=== PATIENT | female | born 1995 | race Hispanic/Latino ===

== ENCOUNTER 2022-10-22 06:00 | Inpatient (IN) | payer MEDICAID, OTHER ==
[2022-10-22] MEDS ORDERED: NS w/ Oxytocin 30 units 500 ML ONE (07:22)
[2022-10-22] MEDS: Lactated Ringer's 1,000 ML IV SCH ×2 (07:35→16:27)
[2022-10-22] MEDS ORDERED: Tranexamic Acid 1,000 MG in Sodium Chloride 0.9% 250 ML 250 ML IVPB PRN (07:42)
[2022-10-22] MEDS ORDERED: Acetaminophen 500 MG TAB PO PRN (07:42)
[2022-10-22] MEDS ORDERED: Diphenoxylate HCl/Atropine Tablet PO PRN (07:42)
[2022-10-22] MEDS ORDERED: hydrALAZINE 20 MG/ML VIAL SLOW IVP PRN (07:42)
[2022-10-22] MEDS ORDERED: Promethazine HCl 25 MG/ML VIAL IM PRN ×2 (07:42→14:41)
[2022-10-22] MEDS ORDERED: HYDROcodone/Acetaminophen 5/325 mg Tablet PO PRN (07:42)
[2022-10-22] MEDS ORDERED: Butorphanol Tartrate 1 MG/ML VIAL SLOW IVP PRN (07:42)
[2022-10-22] MEDS ORDERED: NS w/ Oxytocin 30 units 500 ML IV SCH ×2 (07:42)
[2022-10-22] MEDS ORDERED: Misoprostol 200 MCG TAB PR PRN (07:42)
[2022-10-22] MEDS ORDERED: Lidocaine 1% (PF) 30 ML VIAL SC PRN (07:42)
[2022-10-22] MEDS ORDERED: Carboprost 250 MCG/ML AMP IM PRN (07:42)
[2022-10-22] MEDS ORDERED: Ibuprofen 800 MG TAB PO PRN (07:42)
[2022-10-22] MEDS ORDERED: Ondansetron PF 4 MG/2 ML Vial IVP PRN ×2 (07:42→14:41)
[2022-10-22] MEDS ORDERED: Methylergonovine 0.2 MG/ML VIAL IM PRN (07:42)
[2022-10-22] MEDS ORDERED: Bupivacaine PF 0.5% 30 ML VIAL ONE (08:00)
[2022-10-22 08:02] VITALS: BMI 29.8
[2022-10-22 08:43] LABS: Hemoglobin 14.1 g/dL (12.0-15.5); Mean Corpuscular Hemoglobin 35.3 pg (27.0-33.0); Mean Corpuscular Volume 95.5 fl (81.6-98.3); Mean Platelet Volume 11.2 fl (7.4-10.4); Platelet Count 218 10x3/uL (150-450); RBC Distribution Width 13.2 % (11.5-14.5); Red Blood Cell (RBC) Count 3.99 10x6/uL (3.90-5.03); White Blood Cell (WBC) Count 7.2 10x3/uL (3.5-10.5)
[2022-10-22 08:44] LABS: Syphilis Antibody Nonreactive (Nonreactive); Syphilis Antibody Index 0.03 S/CO (<1.00 Non-Reactive)
[2022-10-22 08:45] LABS: HBSAg Index 0.14 S/CO (0-0.99); Hep B Surf Ag Non-Reactive S/CO (NonReactive)
[2022-10-22 08:46] LABS: SARS-CoV-2 NAA Rapid Test Not Detected (NotDetected)
[2022-10-22] MEDS ORDERED: Fentanyl 2 mcg/Bup 0.1% Cadd 100 ML ONE (11:48)
[2022-10-22] MEDS ORDERED: Moisturizing Cream (Eucerin) 113 GM JAR TOP PRN (14:41)
[2022-10-22] MEDS ORDERED: ePHEDrine Sulfate 50 MG/10 ML VIAL SLOW IVP PRN (14:41)
[2022-10-22] MEDS ORDERED: diphenhydrAMINE 50 MG/ML VIAL IVP PRN (14:41)
[2022-10-22] MEDS ORDERED: Lactated Ringer's 500 ML IV PRN (14:41)
[2022-10-22] MEDS ORDERED: Naloxone HCl 0.4 mg/ml Vial IVP PRN ×2 (14:41)
[2022-10-22] MEDS ORDERED: Acetaminophen 325 MG TAB PO PRN (14:41)
[2022-10-22] MEDS ORDERED: Fentanyl 2 mcg/Bupivacaine 0.1% Cassette 100 ML EPIDURAL SCH (14:45)
[2022-10-22] MEDS ORDERED: Communication Order-Pharmacy FS SCH (14:45)
[2022-10-23] MEDS ORDERED: Lidocaine 1% (PF) 30 ML VIAL ONE (02:30)
[2022-10-23] MEDS ORDERED: Boostrix 0.5 ML (Tdap) VIAL (>/=7 yrs of age) IM SCH (05:00)
[2022-10-23] MEDS ORDERED: Milk Of Magnesia 30 ML UDCUP PO PRN (05:00)
[2022-10-23] MEDS ORDERED: Methylergonovine 0.2 MG/ML VIAL IM PRN (05:00)
[2022-10-23] MEDS ORDERED: Benzocaine-Menthol 82.5 ML CAN TOP PRN (05:00)
[2022-10-23] MEDS ORDERED: Bisacodyl 10 MG SUPP PR PRN (05:00)
[2022-10-23] MEDS ORDERED: Misoprostol 200 MCG TAB VAG PRN (05:04)
[2022-10-23] MEDS ORDERED: hydrALAZINE 20 MG/ML VIAL SLOW IVP PRN (05:04)
[2022-10-23] MEDS: Ibuprofen 800 MG TAB PO SCH ×3 (06:27→21:38)
[2022-10-23] MEDS: Misoprostol 100 MCG TAB VAG SCH (09:39)
[2022-10-23] MEDS: Lactated Ringer's 1,000 ML IV SCH ×2 (09:39→15:26)
[2022-10-23] MEDS: Ferrous Sulfate 325 MG TAB PO SCH ×2 (14:30→15:27)
[2022-10-23] MEDS: Docusate 100 MG CAP PO SCH ×2 (14:30→21:37)
[2022-10-23] MEDS ORDERED: HYDROcodone/Acetaminophen 5/325 mg Tablet PO PRN (15:00)
[2022-10-23] MEDS: HYDROcodone/Acetaminophen 5/325 mg Tablet PO PRN (17:03)
[2022-10-24] MEDS: Lactated Ringer's 1,000 ML IV SCH ×3 (00:01→18:05)
[2022-10-24] MEDS: Ibuprofen 800 MG TAB PO SCH ×3 (06:07→20:28)
[2022-10-24 07:54] VITALS: BP 126/77; TEMP 98.3
[2022-10-24] MEDS: Ferrous Sulfate 325 MG TAB PO SCH ×2 (08:34→18:06)
[2022-10-24] MEDS: Docusate 100 MG CAP PO SCH (08:43)
[2022-10-24] MEDS: HYDROcodone/Acetaminophen 5/325 mg Tablet PO PRN (13:41)
== END 2022-10-24 20:55 | disposition home or self-care (01) | DRG 807 ==
LOC: CSHLD 06:34 → CSHPP 10-23 15:05
PROVIDERS: ADMIT Family Medicine; ATTEND Family Medicine
PROC: 3E033VJ Introduction of Other Hormone into Peripheral Vein, Percutaneous Approach (ICD-10-PCS; principal; 2022-10-23)
PROC: 10E0XZZ Delivery of Products of Conception, External Approach (ICD-10-PCS; 2022-10-23)
PROC: 10907ZC Drainage of Amniotic Fluid, Therapeutic from Products of Conception, Via Natural or Artificial Opening (ICD-10-PCS; 2022-10-23)
PROC: 0W8NXZZ Division of Female Perineum, External Approach (ICD-10-PCS; 2022-10-23)
DX: O80 Encounter for full-term uncomplicated delivery (principal); Z37.0 Single live birth; Z3A.40 40 weeks gestation of pregnancy; Z20.822 Contact with and (suspected) exposure to COVID-19; Z79.899 Other long term (current) drug therapy
CPT/HCPCS: 36415; 51702; 85027; 86780; 86850; 86900; 86901; 87340; J2590; J7120; S0020; U0002

== ENCOUNTER 2024-03-09 23:33 | Inpatient (IN) | payer MEDICAID, OTHER ==
[2024-03-10] MEDS ORDERED: fentaNYL 50 mcg/mL 1 mL Vial SLOW IVP PRN (00:31)
[2024-03-10] MEDS ORDERED: Tranexamic Acid 1,000 MG/10 ML VIAL IVP PRN (00:31)
[2024-03-10 00:32] VITALS: BMI 32.8
[2024-03-10] MEDS ORDERED: Ibuprofen 800 MG TAB PO PRN (00:45)
[2024-03-10] MEDS ORDERED: Oxytocin 30 units/NS 500 ML 500 ML IVPB SCH (00:45)
[2024-03-10] MEDS ORDERED: Promethazine HCl 25 MG/ML VIAL IM PRN ×3 (00:45→09:56)
[2024-03-10] MEDS ORDERED: Lidocaine 1% (PF) 30 ML VIAL SC PRN (00:45)
[2024-03-10] MEDS ORDERED: Ondansetron PF 4 MG/2 ML Vial IVP PRN ×3 (00:45→09:56)
[2024-03-10] MEDS ORDERED: Diphenoxylate HCl/Atropine Tablet PO PRN ×2 (00:45)
[2024-03-10] MEDS ORDERED: Methylergonovine 0.2 MG/ML VIAL IM PRN (00:45)
[2024-03-10] MEDS ORDERED: hydrALAZINE 20 MG/ML VIAL SLOW IVP PRN ×2 (00:45→09:56)
[2024-03-10] MEDS ORDERED: Carboprost 250 MCG/ML AMP IM PRN (00:45)
[2024-03-10] MEDS ORDERED: Acetaminophen 500 MG TAB PO PRN (00:45)
[2024-03-10] MEDS ORDERED: Oxytocin 30 units/NS 500 ML 500 ML IV SCH (00:45)
[2024-03-10] MEDS ORDERED: Misoprostol 200 MCG TAB RC PRN (00:45)
[2024-03-10] MEDS: Lactated Ringer's 1,000 ML IV SCH (01:00)
[2024-03-10 01:41] LABS: HBsAg Index 0.17 S/CO (0-0.99); Hep B Surf Ag - L&D Non-Reactive S/CO (NonReactive)
[2024-03-10 01:43] LABS: Syphilis Antibody Nonreactive (Nonreactive); Syphilis Antibody Index 0.05 S/CO (<1.00 Non-Reactive)
[2024-03-10 02:46] LABS: Mean Platelet Volume 10.4 fL (7.4-10.4); Platelet Count 293 10x3/uL (150-450); RBC Distribution Width 12.9 % (11.5-14.5); Red Blood Cell (RBC) Count 3.98 10x6/uL (3.90-5.03); White Blood Cell (WBC) Count 12.1 10x3/uL (3.5-10.5)
[2024-03-10 02:49] LABS: Mean Corpuscular HGB CONC 38.1 g/dL (32.0-36.0); Mean Corpuscular Hemoglobin 35.7 pg (27.0-33.0); Mean Corpuscular Volume 93.7 fL (81.6-98.3)
[2024-03-10 02:58] LABS: Hematocrit 31.5 % (34.9-44.5); Hemoglobin 11.9 g/dL (12.0-15.5)
[2024-03-10] MEDS: fentaNYL/Ropivacaine Epidural 100 ML ONE (03:19)
[2024-03-10] MEDS ORDERED: Moisturizing Cream (Eucerin) 113 GM JAR TOP PRN (03:28)
[2024-03-10] MEDS ORDERED: diphenhydrAMINE 50 MG/ML VIAL IVP PRN (03:28)
[2024-03-10] MEDS ORDERED: Naloxone HCl 0.4 mg/ml Vial IVP PRN ×2 (03:28)
[2024-03-10] MEDS ORDERED: ePHEDrine Sulfate 50 MG/10 ML VIAL SLOW IVP PRN (03:28)
[2024-03-10] MEDS ORDERED: Acetaminophen 325 MG TAB PO PRN (03:28)
[2024-03-10] MEDS ORDERED: Lactated Ringer's 500 ML IV PRN (03:28)
[2024-03-10] MEDS ORDERED: Communication Order-Pharmacy FS SCH (03:30)
[2024-03-10] MEDS ORDERED: fentaNYL 2 mcg/Ropivacaine 0.2% Epidural 100 ML CADD EPIDURAL SCH (03:30)
[2024-03-10] MEDS ORDERED: Hepatitis B Vaccine 10 MCG/0.5 ML SYR ONE (07:28)
[2024-03-10 08:13] LABS: Analyzer IN Cardio CS NICU; RapidComm Collect By CBN
[2024-03-10 08:16] LABS: Analyzer IN Cardio CS NICU; RapidComm Collect By CBN
[2024-03-10] MEDS ORDERED: Bisacodyl 10 MG SUPP PR PRN (09:56)
[2024-03-10] MEDS ORDERED: Lanolin Ointment 7 GM TUBE TOP PRN (09:56)
[2024-03-10] MEDS ORDERED: Milk Of Magnesia 30 ML UDCUP PO PRN (09:56)
[2024-03-10] MEDS ORDERED: Benzocaine-Menthol 82.5 ML CAN TOP PRN (09:56)
[2024-03-10] MEDS ORDERED: Boostrix 0.5 ML (Tdap) VIAL (>/=7 yrs of age) IM ONE (09:56)
[2024-03-10] MEDS ORDERED: diphenhydrAMINE 25 MG CAP PO PRN (09:56)
[2024-03-10] MEDS: Erythromycin Base 0.5% Oint 1 GM TUBE ONE (10:52)
[2024-03-10] MEDS: Phytonadione Neonatal 1 MG/0.5 ML AMP ONE (10:54)
[2024-03-10] MEDS: Ibuprofen 800 MG TAB PO SCH (14:41)
[2024-03-10] MEDS: Docusate 100 MG CAP PO SCH ×2 (18:09→21:59)
[2024-03-10] MEDS: Prenatal Vitamin 1 TAB PO SCH (18:10)
[2024-03-10] MEDS: Ferrous Sulfate 325 MG TAB PO SCH (19:11)
[2024-03-10] MEDS: HYDROcodone/Acetaminophen 5/325 mg Tablet PO PRN (22:00)
[2024-03-11 00:52] LABS: HIV (1/2) Antibody/Antigen Non-Reactive (NonReactive); HIV 1/2 INDEX 0.08 S/CO (<1.00)
[2024-03-11] MEDS: Prenatal Vitamin 1 TAB PO SCH (17:49)
[2024-03-12 07:45] VITALS: BP 103/58; TEMP 98.3
== END 2024-03-12 15:20 | disposition home or self-care (01) | DRG 807 ==
LOC: CSHLD/OP 23:33 → CSHLD 03-10 00:34 → CSHPP 03-10 10:15
PROVIDERS: ADMIT Family Medicine; ATTEND Family Medicine
PROC: 10D07Z6 Extraction of Products of Conception, Vacuum, Via Natural or Artificial Opening (ICD-10-PCS; principal; 2024-03-10)
PROC: 0UQGXZZ Repair Vagina, External Approach (ICD-10-PCS; 2024-03-10)
PROC: 3E033XZ Introduction of Vasopressor into Peripheral Vein, Percutaneous Approach (ICD-10-PCS; 2024-03-10)
DX: O71.4 Obstetric high vaginal laceration alone (principal); Z37.0 Single live birth; O76 Abnormality in fetal heart rate and rhythm complicating labor and delivery; Z3A.39 39 weeks gestation of pregnancy; O69.81X0 Labor and delivery complicated by cord around neck, without compression, not applicable or unspecified
CPT/HCPCS: 36415; 51702; 82805; 85027; 86780; 86850; 86900; 86901; 87340; 87389; 99285; J7120